=== PATIENT | female | born 1965 | race Caucasian/White ===

== ENCOUNTER → 2019-11-13 09:38 | Outpatient (BNVA) | payer BC, SELFPAY | PROVIDERS: PCP Nurse Practitioner; Visit Provider Internal Medicine | DX: Z11.59 Encounter for screening for other viral diseases (principal) | CPT/HCPCS: 87635 ==

== ENCOUNTER 2019-11-17 10:35 | Outpatient (CLI) | payer BC, SELFPAY ==
--- NOTE | 2019-11-17 13:11 | PFTS_ITS ---
Date of Study:11/17/19 Date of Dictation: 11/18/2019 MECHANICS: Forced vital capacity (FVC) is normal Forced expiratory volume in one second (FEV1) is severely reduced FEV1/FVC is reduced No postbronchodilator study performed to comment on bronchodilator response FLOW VOLUME LOOP: Scooping of expiratory limb suggestive of obstructive component . LUNG VOLUMES: Total lung capacity (TLC) is increased. Residual volume (RV) is increased DIFFUSING CAPACITY FOR CARBON MONOXIDE: Moderately reduced . INTERPRETATION: The pulmonary function tests are consistent with severe obstructive ventilatory defect with increased lung volumes and moderately reduced gas transfer. Correlate clinically. MTDD
== END 2019-11-17 10:36 | disposition home or self-care (01) ==
LOC: RT 10:36
PROVIDERS: PCP Nurse Practitioner; Visit Provider Nurse Practitioner
DX: R05 Cough (principal)
CPT/HCPCS: 94010; 94726; 94729